=== PATIENT | male | born 1990 | race Two or more races ===

== ENCOUNTER → 2017-09-20 | Outpatient (CLI) | payer MEDICAID ==
[2017-09-20 20:01] LABS: BASO % 0.3 % (0.0-1.0); EOS # 0.2 10^3/uL (0.0-0.50); EOS % 2.5 % (0.0-3.0); IMMATURE GRANULOCYTE % 0.3 % (0-0); LYMPH # 2.2 10^3/uL (1.5-6.5); LYMPH % 35.2 % (24.0-44.0); MEAN CORPUSCULAR HEMOGLOBIN 28.6 pg (27.0-33.0); MEAN CORPUSCULAR VOLUME 86.5 fl (80.0-96.0); MONO # 0.6 10^3/uL (0.0-0.8); MONO % 9.3 % (0.0-5.0); NEUTROPHILS # 3.2 10^3/uL (1.8-7.7); NEUTROPHILS % 52.4 % (36.0-66.0); PLATELET COUNT, AUTOMATED 287 10^3/uL (150-450); RED CELL DISTRIBUTION WIDTH 12.6 % (11.5-14.5); WHITE BLOOD COUNT 6.1 10^3/uL (4.0-10.0)
[2017-09-20 20:18] LABS: ALBUMIN 4.4 GM/DL (3.2-5.2); ALBUMIN/GLOBULIN RATIO 1.47 (1.00-1.93); ALKALINE PHOSPHATASE 102 U/L (45-117); ALT/SGPT 28 U/L (12-78); ANION GAP 4 MEQ/L (8-16); AST/SGOT 17 U/L (7-37); BILIRUBIN,TOTAL 0.3 MG/DL (0.2-1.0); BLOOD UREA NITROGEN 14 MG/DL (7-18); CARBON DIOXIDE LEVEL 32 MEQ/L (21-32); CHLORIDE LEVEL 105 MEQ/L (98-107); CREATININE FOR GFR 0.93 MG/DL (0.70-1.30); GLOMERULAR FILTRATION RATE > 60.0 (>60); GLUCOSE, FASTING 82 MG/DL (70-105); POTASSIUM SERUM 4.4 MEQ/L (3.5-5.1); SODIUM LEVEL 141 MEQ/L (136-145); TOTAL PROTEIN 7.4 GM/DL (6.4-8.2)
--- NOTE | 2017-09-21 07:09 | REP ---
Clinical: Pain. Technique: Internal rotation, external rotation, and Y view of the right shoulder. Findings: Cortical irregularity, spurring and possible loose bodies involving the acromioclavicular joint cannot be excluded. The glenohumeral joint appears intact and normal. Subacromial space appears normal. 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 Signed by Eduardo Salazar MD 09/20/2017 05:35 P
== END ==
LOC: M LRY 16:59
PROVIDERS: ATTEND Family Medicine
DX: M19.011 Primary osteoarthritis, right shoulder (principal)

== ENCOUNTER → 2017-09-20 | Outpatient (REF) | payer MEDICAID | LOC: M SFHCLERA 16:37 | PROVIDERS: ATTEND Family Medicine | DX: F19.90 Other psychoactive substance use, unspecified, uncomplicated (principal); Z53.8 Procedure and treatment not carried out for other reasons ==

== ENCOUNTER → 2018-02-22 | Outpatient (REF) | payer MEDICAID | LOC: M LAB REF 02-23 11:47 | DX: F11.21 Opioid dependence, in remission (principal) ==

== ENCOUNTER → 2018-03-08 | Outpatient (REF) | payer MEDICAID | LOC: M LAB REF 17:44 | DX: F11.21 Opioid dependence, in remission (principal) ==

== ENCOUNTER → 2018-03-22 | Outpatient (REF) | payer OTHER, MEDICAID ==
[2018-03-28 14:11] LABS: AMPHETAMINE SCREEN, URINE Negative ng/mL (Cutoff=1000); BARBITURATES SCREEN, URINE Negative ng/mL (Cutoff=200); BENZODIAZEPINES, URINE SCREEN Negative ng/mL (Cutoff=200); CANNABINOID SCREEN, URINE Negative ng/mL (Cutoff=20); COCAINE SCREEN, URINE Negative ng/mL (Cutoff=300); CREATININE, URINE 32.4 mg/dL (20.0-300.0); FENTANYL URINE SCREEN Negative pg/mL (Cutoff=2000); METHADONE, URINE SCREEN Negative ng/mL (Cutoff=300); NALOXONE RESULT Positive (.); OPIATE SCREEN, URINE Negative ng/mL (Cutoff=300); OXYCODONE, SCREEN, URINE Negative ng/mL (Cutoff=100); PCP SCREEN, URINE Negative ng/mL (Cutoff=25); SPECIFIC GRAVITY, URINE 1.007 (.); URINE BUPRENORPHINE Positive (.); URINE BUPRENORPHINE Positive (Cutoff=10); URINE BUPRENORPHINE See Final Results ng/mL (Cutoff=10); URINE BUPRENORPHINE CONFIRM 380 ng/mL (Cutoff=10); URINE NORBUPRENORPHINE Positive (.); URINE NORBUPRENORPHINE CONFIRM 96 ng/mL (Cutoff=10); pH, URINE 5.8 (4.5-8.9)
== END ==
LOC: M LAB REF 17:04
DX: F11.21 Opioid dependence, in remission (principal)
CPT/HCPCS: 80362

== ENCOUNTER → 2018-03-29 | Outpatient (REF) | payer OTHER, MEDICAID ==
[2018-04-06 10:13] LABS: AMPHETAMINE SCREEN, URINE Negative ng/mL (Cutoff=1000); BARBITURATES SCREEN, URINE Negative ng/mL (Cutoff=200); BENZODIAZEPINES, URINE SCREEN Negative ng/mL (Cutoff=200); CANNABINOID SCREEN, URINE Negative ng/mL (Cutoff=20); COCAINE SCREEN, URINE Negative ng/mL (Cutoff=300); CREATININE, URINE 101.5 mg/dL (20.0-300.0); FENTANYL URINE SCREEN Negative pg/mL (Cutoff=2000); METHADONE, URINE SCREEN Negative ng/mL (Cutoff=300); NALOXONE RESULT Positive (.); OPIATE SCREEN, URINE Negative ng/mL (Cutoff=300); OXYCODONE, SCREEN, URINE Negative ng/mL (Cutoff=100); PCP SCREEN, URINE Negative ng/mL (Cutoff=25); SPECIFIC GRAVITY, URINE 1.006 (.); URINE BUPRENORPHINE Positive (.); URINE BUPRENORPHINE Positive (Cutoff=10); URINE BUPRENORPHINE See Final Results ng/mL (Cutoff=10); URINE BUPRENORPHINE CONFIRM 1074 ng/mL (Cutoff=10); URINE NORBUPRENORPHINE Positive (.); URINE NORBUPRENORPHINE CONFIRM 498 ng/mL (Cutoff=10); pH, URINE 6.3 (4.5-8.9)
== END ==
LOC: M LAB REF 09:10
DX: F11.21 Opioid dependence, in remission (principal)

== ENCOUNTER → 2018-04-05 | Outpatient (REF) | payer OTHER, MEDICAID ==
[2018-04-13 10:16] LABS: AMPHETAMINE SCREEN, URINE Negative ng/mL (Cutoff=1000); BARBITURATES SCREEN, URINE Negative ng/mL (Cutoff=200); BENZODIAZEPINES, URINE SCREEN Negative ng/mL (Cutoff=200); CANNABINOID SCREEN, URINE Negative ng/mL (Cutoff=20); COCAINE SCREEN, URINE Negative ng/mL (Cutoff=300); CREATININE, URINE 11.6 mg/dL (20.0-300.0); FENTANYL URINE SCREEN Negative pg/mL (Cutoff=2000); METHADONE, URINE SCREEN Negative ng/mL (Cutoff=300); NALOXONE RESULT Positive (.); OPIATE SCREEN, URINE Negative ng/mL (Cutoff=300); OXYCODONE, SCREEN, URINE Negative ng/mL (Cutoff=100); PCP SCREEN, URINE Negative ng/mL (Cutoff=25); URINE BUPRENORPHINE Positive (.); URINE BUPRENORPHINE Positive (Cutoff=10); URINE BUPRENORPHINE See Final Results ng/mL (Cutoff=10); URINE BUPRENORPHINE CONFIRM 112 ng/mL (Cutoff=10); URINE NORBUPRENORPHINE Positive (.); URINE NORBUPRENORPHINE CONFIRM 28 ng/mL (Cutoff=10); pH, URINE 6.4 (4.5-8.9)
== END ==
LOC: M LAB REF 08:06
DX: F11.21 Opioid dependence, in remission (principal)

== ENCOUNTER 2020-01-03 11:49 | Inpatient (IN) | payer BC, MEDICAID, OTHER ==
[~2020-01-03] VITALS: Ht 182.9 cm; Wt 86.4 kg
[2020-01-03 12:19] LABS: HEMATOCRIT 38.5 % (42.0-52.0); HEMOGLOBIN 12.8 g/dl (13.5-17.5); MEAN CORPUSCULAR HEMOGLOBIN 28.1 pg (27.0-33.0); MEAN CORPUSCULAR HGB CONC 33.2 g/dl (32.0-36.5); MEAN CORPUSCULAR VOLUME 84.6 fl (80.0-96.0); PLATELET COUNT, AUTOMATED 283 10^3/uL (150-450); RED BLOOD COUNT 4.55 10^6/uL (4.30-6.10); WHITE BLOOD COUNT 6.6 10^3/uL (4.0-10.0)
[2020-01-03 12:51] LABS: ACETAMINOPHEN LEVEL < 2.0 UG/ML (10.0-30.0); ALBUMIN 3.8 GM/DL (3.2-5.2); ALT/SGPT 238 U/L (12-78); BILIRUBIN,DIRECT 0.2 MG/DL (0.0-0.2); BILIRUBIN,TOTAL 0.6 MG/DL (0.2-1.0); BLOOD UREA NITROGEN 21 MG/DL (7-18); CALCIUM LEVEL 8.4 MG/DL (8.5-10.1); CARBON DIOXIDE LEVEL 28 MEQ/L (21-32); CHLORIDE LEVEL 106 MEQ/L (98-107); ETHYL ALCOHOL (ETHANOL) 0.003 % (0.000-0.010); GLOMERULAR FILTRATION RATE > 60.0 (>60); GLUCOSE, FASTING 160 MG/DL (70-100); POTASSIUM SERUM 4.1 MEQ/L (3.5-5.1); SALICYLATE LEVEL < 1.7 MG/DL (5.0-30.0); SODIUM LEVEL 139 MEQ/L (136-145); THYROID STIMULATING HORMONE 0.476 uIU/ML (0.358-3.740); TOTAL PROTEIN 7.3 GM/DL (6.4-8.2)
[2020-01-03 13:19] LABS: AMPHETAMINES LEVEL URINE NEGATIVE (NEGATIVE); BARBITURATES URINE NEGATIVE (NEGATIVE); BENZODIAZEPINES URINE NEGATIVE (NEGATIVE); CANNABINOIDS URINE NEGATIVE (NEGATIVE); COCAINE METABOLITE URINE NEGATIVE (NEGATIVE); METHADONE URINE NEGATIVE (NEGATIVE); OPIATES URINE POSITIVE (NEGATIVE); PHENCYCLIDINE URINE NEGATIVE (NEGATIVE)
[2020-01-03] MEDS ORDERED: OLANZapine ORAL DISINTEGRATING TAB 5MG PO ONE (17:45)
--- NOTE | 2020-01-03 23:20 | ECGEPIP ---
[facility] - ED Test Date: 2020-01-03 Pat Name: AMELIE DE ANDA Department: Room: - Gender: Male Customer Service Consultant: sameera : 1990 Requested By: KYLIE ESPARZA Order Number: [id number] Reading MD: Kylie Bradshaw Measurements Intervals [place] Rate: 52 P: 51 MS: 142 QRS: 49 QRSD: 101 T: 45 QT: 440 QTc: 411 Interpretive Statements SINUS BRADYCARDIA WITH sinus arrythmia Comparison tracing not on file Electronically Signed on 01-03-2020 23:20:32 EST by Kylie Bradshaw
[2020-01-04] MEDS ORDERED: MOM 30ML SUSPENSION UDC PO PRN (15:30)
[2020-01-04] MEDS ORDERED: MAALOX 30 ML SUSP *UDC PO PRN (15:30)
[2020-01-04] MEDS: ACETAMINOPHEN TAB 650MG DOSE (2X325MG) PO PRN (16:35)
[2020-01-04 17:22] VITALS: BP 126/80
[2020-01-05 06:45] VITALS: BP 118/72
[2020-01-05 16:19] VITALS: BP 129/84
[2020-01-05] MEDS: ACETAMINOPHEN TAB 650MG DOSE (2X325MG) PO PRN (19:41)
[2020-01-05] MEDS: traZODone 50 MG TAB PO PRN (20:18)
[2020-01-06 06:52] VITALS: BP 118/64
[2020-01-06] MEDS: OLANZapine ORAL DISINTEGRATING TAB 5MG PO PRN ×2 (09:59→22:46)
[2020-01-06] MEDS: GABAPENTIN 300 MG CAP PO SCH ×2 (11:46→20:09)
--- NOTE | 2020-01-06 12:30 | HPEPDOC ---
[facility] Medical History & Physical Date of Admission Jan 06, 2020 Date of Service: Jan 06, 2020 Attending Physician: JEWEL DANIELS MD History and Physical CHIEF COMPLAINT: Admitted to inpatient mental health unit for hallucinations HISTORY OF PRESENT ILLNESS: 29-year-old male with past medical history of extensive IV drug use is admitted to inpatient mental health unit for hallucinations. Patient reports multiple occurrences of insomnia for days after taking lots of uppers. During this event he took Raquel, reports being awake for days, started hallucinating about the hospital. He denies any thoughts of depression or suicide. He denies any previous history of infection including cellulitis, bacteremia or endocarditis. Patient denies any history of illness from sharing needles. He has no complaints at this time, denies any shortness of breath, chest pain, nausea, vomiting, abdominal pain, diarrhea or constipation. 10 point review of system is negative except for above PAST MEDICAL HISTORY: 1. Drug abuse. PAST SURGICAL HISTORY: 1. Left hand surgery due to injury. SOCIAL HISTORY: Current smoker, smokes half a pack per day. Denies alcohol use. Active drug user, currently using Raquel FAMILY HISTORY: Denies family history of malignancy or heart disease ALLERGIES: Please see below. HOME MEDICATIONS: Please see below. PHYSICAL EXAMINATION: VITAL SIGNS: Please see below. GENERAL: No distress HEENT: Normocephalic, atraumatic, moist mucous membranes NECK: Supple CARDIOVASCULAR EXAMINATION: S1, S2, no murmurs RESPIRATORY EXAMINATION: Clear to auscultation, no wheezing ABDOMINAL EXAMINATION: Soft, nontender, nondistended, positive bowel sounds EXTREMITIES: Range of motion intact SKIN: Multiple track bertrand noted on both arms NEUROLOGICAL EXAMINATION: Alert and oriented 3, no focal deficits PSYCHIATRIC EXAMINATION: Calm and cooperative LABORATORY DATA: See below. MICROBIOLOGY: Please see below. ASSESSMENT: 29-year-old male with history of drug abuse, admitted to inpatient mental health unit for hallucinations PLAN: 1. Hallucinations. Management as per primary team 2. Elevated LFTs. Possibly related to hepatitis given history of IV drug use, hepatitis panel ordered. Patient is symptomatic Vital Signs Vital Signs Date Time Temp Pulse Resp B/P (MAP) Pulse Ox O2 Delivery O2 Flow Rate FiO2 01/06/20 06:52 99.0 66 16 118/64 (82) 01/04/20 17:22 100 Room Air Home Medications No Active Prescriptions or Reported Meds Allergies Coded Allergies: No Known Allergies (Unverified , 01/03/20) A-FIB/CHADSVASC A-FIB History Current/History of A-Fib/PAF?: No JEWEL DANIELS MD Jan 06, 2020 12:30
[2020-01-06 16:14] VITALS: BP 115/66
[2020-01-06] MEDS: traZODone 50 MG TAB PO PRN (20:08)
--- NOTE | 2020-01-06 20:18 | MHHPE ---
DATE OF ADMISSION: 01/04/2020 VITAL SIGNS: Blood pressure 129/84, pulse 113, temperature 98.4. CHIEF COMPLAINT: "I was hallucinating." SUBJECTIVE: He is 29 years old. He is single. He stays with his mother and apparently moved back to this area, living with his mother recently, and prior to that was in [place], [place], where, according to the emergency room chart, he was with an ex girlfriend. He says that he has been hallucinating and that he has tended to do that whenever he has used drugs, says most recently was using heroin, was injecting it, as well as "Raquel" (MDMA) and says was up for several nights and then began hearing voices. He says that they belong to familiar people, friends of his as well, says they would address him, but would not talk among themselves. He denies that they were giving him any commands. He says that he feels that they are diminished now. He says that he has had similar experiences in the past when he has used drugs and has stayed up several nights in a row. He says that he realizes the hallucinations and that they are always associated with his drug use. He says that there are other times when he is not using drugs but that he still has periods when he is up, not sleeping, feels more irritable during that time, says feels somewhat tired, acknowledges is more impulsive during those periods, financially and socially but did not go into details, and that those periods last for a few days and then he tends to "crash." In the emergency room , he had suggested that he had microchips in his body, says did not recall saying that or feeling that, does say when he is using drugs that his thoughts become disorganized somewhat. Denies that he has had thoughts of harming himself. He also says that he has had periods when he does not sleep much, at least since his early 20s, possibly earlier. When in the emergency room, had suggested that he had microchips in his body, he thought that he was getting shocked in the right flank, but has reported no such thoughts now. He says that he does not remember that, and that he has had such thoughts when using drugs in the past. The record also suggests that he has used Narcan in the past. Other thoughts when seen in the emergency room included belief that people are touching his penis or putting objects into his anus and that he could feel it because it was in his stomach. PAST PSYCHIATRIC HISTORY: He was apparently hospitalized at [facility] in 2019 in the summer, had attempted killing himself by cutting his wrist. Unclear if he attends any outpatient care. Per history, he has a history of depression, anxiety, and posttraumatic stress disorder (PTSD), but I am not aware of details. SUBSTANCE ABUSE HISTORY: He has a history of substance abuse, opiates, Raquel. He says that he is due to go to an outpatient rehabilitation facility, he is unclear where it is, then says that he thinks that he may have needed to have started yesterday. SOCIAL HISTORY: Details are not known in any great amount, but he stays with his mother, he was in [place], [place] just prior to this. He suggests that his mother has difficulties with moods and that she is on medicine, but she has been doing well. He also suggests a sibling has similar difficulties. MENTAL STATUS EXAMINATION: He is fairly neat, seems to have had some scratches on his face. Cooperative though a bit guarded. There is no agitation. No psychomotor retardation. He is coherent. Affect is restricted but shows reactivity. Denies any suicidal thoughts or intents. No homicidal ideas or intents. Currently, he does not appear to be internally preoccupied. No fluctuation of consciousness. No overt delusions elicited at present either. Cognition is grossly intact. Intellect is average. He is able to maintain and shift attention adequately. Judgment and insight are questionable. ASSESSMENT: 1. Other specified psychotic disorder. 2. Rule out bipolar disorder. 3. Rule out psychotic disorder due to drug misuse. 4. Opiate use disorder. The patient describes periods of hallucinations, possibly paranoia though unable to describe that, but only when using drugs. He says that he tends to stay up for several nights and the drugs may be inducing possible manic episodes with psychosis. He suggests that he has had mood fluctuations independent of drug use and this brings into question the possibility of bipolar disorder in addition to secondary joceline. He may well not be a reliable historian either. PLAN: He is admitted to the inpatient psychiatry unit and placed on relevant precautions. I would suggest obtaining collateral information for a raymundo picture. Would also treat symptomatically but would hold off on using a psychotropic on a scheduled basis, may not need one. The possibility; however, of using a mood stabilizer, depending on further information obtained, needs to be considered. He will be involved in individual, group and milieu therapy. He will receive a consultation from medicine if indicated. He will be discharged with followup once he is stable. I would anticipate a 5 to 7 day stay. The assessment took 45 minutes.
[2020-01-07 06:30] VITALS: BP 126/81
[2020-01-07] MEDS: GABAPENTIN 300 MG CAP PO SCH ×2 (09:13→20:12)
--- NOTE | 2020-01-07 10:29 | MHIPNPDOC ---
[facility] Progress Note Progress Note Inpatient Progress Note Joni Christy MRN: N/A Date of : N/A Date of Service: 01/07/2020 History of Present Illness The patient, a 29-year-old man with a history of significant substance use, presents intoxicated with delusions and paranoia. Interval History Narrative: The patient reports feeling much improved, does feel some withdrawal from his heroin use prior to admission. Affective: Denies any symptoms. Psychotic: Denies any symptoms. Anxiety: Worries about being discharged. Eating and sleeping behaviors: Within normal limits. Group Attendance: Infrequent. Medication Side effects: See ROS below Behavioral problems/significant events overnight: None reported. Staff Report: Patient generally amenable, although minimally involved. Review Of Systems General: Denies fever or appetite changes Cardiovascular: Denies Chest pain or palpations GI: Denies Nausea, vomiting, or bowel changes Respiratory: Denies shortness of breath or cough Neuro: Denies dizziness, tremors Derm: Denies any rashes or pruritus : Denies any dysuria or urinary problems MSK: Reports significant back pain HEENT: Denies any vision changes or headaches Psychotherapy None on this visit. Vital Signs Reviewed. Mental Status Examination General: Well dressed with good hygiene Speech: Spontaneous and fluid Thought processes: Linear and logical MSK: Smooth and coordinated gait, no signs of tremors or involuntary orofacial movements Thought content: Future orientated Abstract reasoning, and computation: Intact Description of associations: Intact Description of abnormal or psychotic thoughts: Denies any suicidal or homicidal ideation. Denies any auditory or visual hallucinations. Does not appear to be responding to internal stimuli. Does not appear to be endorsing any bizarre or paranoid ideation. Judgment: fair Insight: fair Orientation: Alert and orientated 3 Cognition: Grossly normal Recent and remote memory: Intact Attention span and concentration: Intact Fund of knowledge: Adequate Mood: "okay" Affect: Euthymic with a full range Diagnoses Unspecified psychotic disorder. Highly likely substance induced. Opioid use disorder, severe. Hallucinogen use disorder, severe. Assessment and Plan Unspecified psychotic disorder: Resolved, likely substance induced. Opioid use disorder: One dose of buprenorphine to detox patient. Discussed with patient about outpatient addiction resources Hallucinogen use disorder: Recommend outpatient treatment versus rehab. Disposition Discharge tomorrow if patient continues to have a normal mental status exam and is in behavioral control. Time Spent 15 minutes Tuesday Vital Signs Vital Signs Date Time Temp Pulse Resp B/P (MAP) Pulse Ox O2 Delivery O2 Flow Rate FiO2 01/07/20 06:30 97.6 104 14 126/81 (96) 01/04/20 17:22 100 Room Air Laboratory Data 24H Labs Laboratory Tests 2 01/07/20 06:18: Current Medications Current Medications Medications (Trade) Dose Ordered Sig/Ivana Route PRN Reason Start Time Stop Time Status Last Admin Dose Admin Acetaminophen (Tylenol Tab) 650 mg Q6HP PRN PO HEADACHE or DISCOMFORT 01/04/20 15:30 01/05/20 19:41 Al Hydrox/Mg Hydrox/Simethicone (Mylanta) 30 ml Q4HP PRN PO HEARTBURN/INDIGESTION 01/04/20 15:30 Gabapentin (Neurontin) 300 mg BID PO 01/06/20 09:00 01/07/20 09:13 Home Med (Med Rec Complete!) ASDIRECTED XX 01/04/20 14:00 01/04/20 13:50 DC Magnesium Hydroxide (Milk Of Magnesia) 30 ml DAILYPRN PRN PO CONSTIPATION 01/04/20 15:30 Olanzapine (ZyPREXA ZYDIS) 5 mg Q6HP PRN PO ANXIETY/AGITATION 01/05/20 19:00 01/06/20 22:46 Trazodone HCl (Desyrel) 50 mg QHSP PRN PO INSOMNIA 01/04/20 15:30 01/06/20 20:08 Allergies Coded Allergies: No Known Allergies (Unverified , 01/03/20) PORTILLO [place] DO Jan 07, 2020 10:29
--- NOTE | 2020-01-07 13:06 | MHIPN ---
DATE: 01/06/2020 VITAL SIGNS: Blood pressure 118/64, pulse 66, temperature 99. CHIEF COMPLAINT: Says feels okay. SUBJECTIVE: He is seen for followup in the presence of staff. Says feels okay but bored. He says that he slept well, took the trazodone, which he says helped. He denies any auditory hallucinations. He says that he was visited by his mother and that went well. Says has been on gabapentin at 600 mg three times a day for a few years. He says that it is used in his case for mood stability, as well as "nerve pain." He suggests that it helps with his mood stability, though I am not sure that is accurate. MENTAL STATUS EXAMINATION He is lying in bed. He is cooperative, though possibly a bit superficially so. No agitation. No psychomotor retardation. He is coherent. Affect is restricted but reactive. Denies any thoughts of harming himself or anyone else. Denies any auditory or visual hallucinations. Does not appear to be internally preoccupied. No delusions elicited. Cognition is grossly intact. Judgment and insight fair, possibly improved. ASSESSMENT: 1. Other specified psychotic disorder. 2. Possibility of drug induced hallucinations ought to be considered. There is also the possibility of bipolar disorder concomitant with the substance misuse. PLAN: Continue current care. Obtain collateral information. We will look at resuming the gabapentin at 600 mg and titrate it upwards, start off with it being taken once a day. Collateral information would help clarify the diagnosis further. He is to be encouraged to participate in activities in the unit. He will be seeing the treatment team, as well as the assigned psychiatrist tomorrow.
[2020-01-07] MEDS ORDERED: BUPRENORPHINE/NALOXONE 8-2MG SUBLINGUAL TABLET(SUBOXONE) SL ONE (14:00)
[2020-01-07 16:24] VITALS: BP 134/79
[2020-01-07] MEDS: traZODone 50 MG TAB PO PRN (20:12)
[2020-01-07] MEDS: OLANZapine ORAL DISINTEGRATING TAB 5MG PO PRN (20:12)
[2020-01-07] MEDS ORDERED: zolPIDEM TARTRATE 5 MG TAB PO ONE (22:30)
[2020-01-08 06:40] VITALS: BP 121/73
[2020-01-08] MEDS: OLANZapine ORAL DISINTEGRATING TAB 5MG PO PRN (10:05)
[2020-01-08] MEDS: ACETAMINOPHEN TAB 650MG DOSE (2X325MG) PO PRN (10:05)
[2020-01-08] MEDS: GABAPENTIN 300 MG CAP PO SCH (10:05)
--- NOTE | 2020-01-08 10:54 | MHDSPDOC ---
[facility] Discharge Summary Discharge Summary DATE OF ADMISSION: Jan 04, 2020 at 15:27 DATE OF DISCHARGE: 01/08/20 Joni Christy Discharge Joni Christy Select Gender MRN: N/A Date of : MM/DD/YYYY Date of Service: 01/08/2020 Diagnoses Unspecified psychotic disorder. Highly likely substance induced. Opioid use disorder, severe. Hallucinogen use disorder, severe. History of Present Illness The patient, a 29-year-old man with a history of significant substance use, p resents intoxicated with delusions and paranoia. Consultants Involved Hospitalist/PCP screening Treatment and Progress On The Unit The patient was admitted to the inpatient mental health unit. It appeared quite obvious that initially he had been psychotic from intoxication on a number of hallucinogens. He did well on just supportive treatment and returned to a normal mental status. He had no major behavioral problems and attended groups at times. He was met with several times where it appeared quite clear that he had returned to his baseline level of understanding of the situation. His mother had reported concerns as his behavior had been quite dysregulated when he was intoxicated and that he has significantly relapsed on a number of different substances over the last year. She relates some concerns the day prior to discharge, when I had spoken to her no new information was gleaned other than his relapse had caused him to become very dysregulated, but she did admit when he was sober he had no symptoms. I discussed with the patient the options of an antipsychotic and the risks and benefits, especially with the concern that they would be generally contraindicated for long-term use given that he primarily has likely substance- induced psychosis from his methamphetamine and miguel. I gave suggestions to the mother about assisted outpatient treatment and rehab referrals to the patient, he was precontemplative but was open to the idea of coming to our addiction clinic to see about further treatment. He was given 1 dose of buprenorphine to soothe his heroin withdrawals with positive effects. Discharge Assessment The patient, a 29-year-old man, with a history of significant substance use over the past year, who's recently relapsed on heroin and multiple hallucinogens pres ents intoxicated with psychotic symptoms that resolved without any significant interventions, leading this provider to believe they are primarily substance induced. Information from his mother doesn't contribute to the diagnostic or prognostic picture significantly, as her concerns are validated when spoken to, she was explained the limits of involuntary commitment as the patient was not demonstrating any further symptoms since his intoxication had resolved. The patient at the time of discharge did not meet criteria for involuntary admission/extension due to having a normal mental status exam, fair insight into the situation, They are engaged in the discharge process, as well as being friendly and amenable in behavioral control and havent been engaging in any observed concerning behavior or ideation recently. They decline voluntary extension/admission at this time and must be discharged in good rochelle, as Im unable to make a case for holding the patient against their will. They may have historical risk factors of admissions and other interactions with psychiatry however, those are not modifiable from a clinical perspective. The patient will need to be discharged in good rochelle. Mental Status Examination General: Well dressed with good hygiene Speech: Spontaneous and fluid Thought processes: Linear and logical MSK: Smooth and coordinated gait, no signs of tremors or involuntary orofacial movements Thought content: Future orientated Abstract reasoning, and computation: Intact Description of associations: Intact Description of abnormal or psychotic thoughts: Denies any suicidal or homicidal ideation. Denies any auditory or visual hallucinations. Does not appear to be responding to internal stimuli. Does not appear to be endorsing any bizarre or paranoid ideation. Judgment: fair Insight: fair Orientation: Alert and orientated 3 Cognition: Grossly normal Recent and remote memory: Intact Attention span and concentration: Intact Fund of knowledge: Adequate Mood: "okay" Affect: Euthymic with a full range Follow Up The social work team worked during the predischarge meeting in order to evaluate for further issues of lethality address them fully before discharge. They worked on safety planning with the patient's family members in order to ensure that the patient will have a safe and effective discharge. Time Spent The amount of time spent in the coordination of care for this patient was approx imately 50 minutes. Vital Signs/I&Os Vital Signs Date Time Temp Pulse Resp B/P (MAP) Pulse Ox O2 Delivery O2 Flow Rate FiO2 01/08/20 06:40 97.5 83 12 121/73 (89) Room Air 01/04/20 17:22 100 Medications No Active Prescriptions or Reported Meds Allergies Coded Allergies: No Known Allergies (Unverified , 01/03/20) PORTILLO [place] DO Jan 08, 2020 10:54
[2020-01-11 00:07] LABS: HBV HBV DNA not detected IU/mL (.); HBVCOREDIFF1 Negative (Negative); HBVCOREDIFF2 Negative (Negative); HCV RNA (INTERNATIONAL UNITS) 10873000 IU/mL (.); HEPATITIS BE ANTIBODY Negative (Negative); HEPATITIS BE ANTIGEN Negative (Negative); HEPATITIS C QUANTITATION See Final Results IU/mL (.)
== END 2020-01-08 11:50 | disposition home or self-care (01) | DRG 751 ==
LOC: M ED 11:49 → M ED INP 01-04 15:27 → M PSY 01-04 16:07
PROVIDERS: ADMIT Psychiatry & Neurology Addiction Medicine; ATTEND Psychiatry & Neurology Addiction Medicine
DX: F29 Unspecified psychosis not due to a substance or known physiological condition (principal); F11.251 Opioid dependence with opioid-induced psychotic disorder with hallucinations; F16 Hallucinogen related disorders; G47.00 Insomnia, unspecified; F17.210 Nicotine dependence, cigarettes, uncomplicated; R94.5 Abnormal results of liver function studies

== ENCOUNTER 2022-11-30 10:55 | Inpatient (IN) | payer BC, OTHER ==
[~2022-11-30] VITALS: Ht 182.9 cm; Wt 86.3 kg
[2022-11-30 12:27] LABS: HEMATOCRIT 40.2 % (42.0-52.0); HEMOGLOBIN 13.1 g/dl (13.5-17.5); MEAN CORPUSCULAR HEMOGLOBIN 28.1 pg (27.0-33.0); MEAN CORPUSCULAR HGB CONC 32.6 g/dl (32.0-36.5); MEAN CORPUSCULAR VOLUME 86.1 fl (80.0-96.0); PLATELET COUNT, AUTOMATED 341 10^3/uL (150-450); RED BLOOD COUNT 4.67 10^6/uL (4.30-6.10); WHITE BLOOD COUNT 11.7 10^3/uL (4.0-10.0)
[2022-11-30 12:51] LABS: ETHYL ALCOHOL (ETHANOL) 0.003 % (0.000-0.010)
[2022-11-30 12:53] LABS: ACETAMINOPHEN LEVEL < 2.0 UG/ML (10.0-20.0); ALBUMIN 4.7 G/DL (3.2-5.2); ALKALINE PHOSPHATASE 75 U/L (46-116); ALT/SGPT 52 U/L (7.0-40); AST/SGOT 92 U/L (<34); BILIRUBIN,DIRECT 0.4 MG/DL (<0.4); BILIRUBIN,TOTAL 0.9 MG/DL (0.3-1.2); BLOOD UREA NITROGEN 24 MG/DL (9-23); CALCIUM LEVEL 9.2 MG/DL (8.5-10.1); CARBON DIOXIDE LEVEL 24 MMOL/L (20-31); CHLORIDE LEVEL 99 MMOL/L (98-107); CREATININE FOR GFR 0.77 MG/DL (0.70-1.30); GLOMERULAR FILTRATION RATE > 60.0 (>60); GLUCOSE, FASTING 84 MG/DL (60-100); POTASSIUM SERUM 3.9 MMOL/L (3.5-5.1); SALICYLATE LEVEL < 3.0 MG/DL (<30); SODIUM LEVEL 137 MMOL/L (136-145); TOTAL PROTEIN 7.8 G/DL (5.7-8.2)
[2022-11-30 16:26] LABS: METHADONE URINE NEGATIVE (NEGATIVE); OPIATES URINE NEGATIVE (NEGATIVE); PHENCYCLIDINE URINE NEGATIVE (NEGATIVE)
[2022-11-30 16:27] LABS: AMPHETAMINES LEVEL URINE NEGATIVE (NEGATIVE); BARBITURATES URINE NEGATIVE (NEGATIVE); BENZODIAZEPINES URINE NEGATIVE (NEGATIVE); CANNABINOIDS URINE NEGATIVE (NEGATIVE); COCAINE METABOLITE URINE NEGATIVE (NEGATIVE)
[2022-11-30 16:35] LABS: THYROID STIMULATING HORMONE 0.412 uIU/ML (0.55-4.78)
[2022-11-30] MEDS: BUPRENORPHINE/NALOXONE 8-2MG SUBLINGUAL TABLET(SUBOXONE) SL SCH (19:54)
[2022-11-30] MEDS: GABAPENTIN 300 MG CAP PO SCH (19:54)
[2022-11-30] MEDS ORDERED: OLANZapine 10 MG TAB PO SCH (19:55)
[2022-11-30] MEDS ORDERED: cloNIDine 0.1MG TABLET PO SCH (19:55)
[2022-11-30] MEDS ORDERED: QUEtiapine FUMARATE 200 MG TAB PO SCH (19:55)
[2022-12-01] MEDS: NICOTINE 21MG/24HR 1 EA TRANSDERMAL TD SCH (09:00)
[2022-12-01] MEDS ORDERED: cloNIDine 0.1MG TABLET PO SCH ×2 (09:00→21:00)
[2022-12-01] MEDS ORDERED: QUEtiapine FUMARATE 200 MG TAB PO SCH ×2 (09:00→21:00)
[2022-12-01] MEDS ORDERED: OLANZapine 10 MG TAB PO SCH ×2 (09:00→21:00)
[2022-12-01] MEDS: BUPRENORPHINE/NALOXONE 8-2MG SUBLINGUAL TABLET(SUBOXONE) SL SCH (10:12)
[2022-12-01] MEDS: GABAPENTIN 300 MG CAP PO SCH ×3 (10:12→20:42)
[2022-12-01] MEDS ORDERED: OLAN1TAB20 PO (11:53)
[2022-12-01] MEDS ORDERED: GABA600T4 PO (11:53)
[2022-12-01] MEDS ORDERED: QUET200T2 PO (11:53)
[2022-12-01] MEDS ORDERED: BUPR1SUB5 PO (11:53)
[2022-12-01] MEDS ORDERED: CLON-412 PO (11:53)
[2022-12-01] MEDS ORDERED: HOME MED LIST COMPLETE! XX SCH (11:55)
[2022-12-01] MEDS ORDERED: ACETAMINOPHEN TAB 650MG DOSE (2X325MG) PO PRN (14:15)
[2022-12-01] MEDS ORDERED: traZODone 50 MG TAB PO PRN (14:15)
[2022-12-01] MEDS ORDERED: MOM 30ML SUSPENSION UDC PO PRN (14:15)
[2022-12-01] MEDS ORDERED: MAALOX 30 ML SUSP *UDC PO PRN (14:15)
[2022-12-01 16:50] VITALS: BP 137/79
[2022-12-01] MEDS: OLANZapine 10 MG TAB PO SCH (20:42)
[2022-12-01] MEDS: QUEtiapine FUMARATE 200 MG TAB PO SCH (20:42)
[2022-12-01] MEDS: cloNIDine 0.1MG TABLET PO SCH (20:42)
[2022-12-01] MEDS ORDERED: BUPRENORPHINE/NALOXONE 8-2MG SUBLINGUAL TABLET(SUBOXONE) PO SCH (21:00)
[2022-12-02 06:39] VITALS: BP 109/57
[2022-12-02] MEDS: NICOTINE 21MG/24HR 1 EA TRANSDERMAL TD SCH (09:00)
[2022-12-02] MEDS: BUPRENORPHINE/NALOXONE 8-2MG SUBLINGUAL TABLET(SUBOXONE) PO SCH ×2 (10:50→14:00)
[2022-12-02] MEDS: GABAPENTIN 300 MG CAP PO SCH ×3 (10:50→20:35)
[2022-12-02 19:14] VITALS: BP 150/80
[2022-12-02 20:35] VITALS: BP 150/80
[2022-12-02] MEDS: OLANZapine 10 MG TAB PO SCH (20:35)
[2022-12-02] MEDS: cloNIDine 0.1MG TABLET PO SCH (20:35)
[2022-12-02] MEDS: QUEtiapine FUMARATE 200 MG TAB PO SCH (20:35)
[2022-12-03 07:02] VITALS: BP 124/58
[2022-12-03] MEDS: NICOTINE 21MG/24HR 1 EA TRANSDERMAL TD SCH (09:00)
[2022-12-03] MEDS: GABAPENTIN 300 MG CAP PO SCH (09:07)
[2022-12-03] MEDS: BUPRENORPHINE/NALOXONE 8-2MG SUBLINGUAL TABLET(SUBOXONE) PO SCH (09:07)
== END 2022-12-03 13:20 | disposition home or self-care (01) | DRG 750 ==
LOC: M ED 10:55 → M ED INP 12-01 14:13 → M PSY 12-01 16:44
PROVIDERS: ADMIT Psychiatry & Neurology Psychiatry; ATTEND Psychiatry & Neurology Psychiatry
DX: F25.9 Schizoaffective disorder, unspecified (principal); Z91.14 Patient's other noncompliance with medication regimen; F13.10 Sedative, hypnotic or anxiolytic abuse, uncomplicated; Z56.0 Unemployment, unspecified; F17.200 Nicotine dependence, unspecified, uncomplicated; Z79.899 Other long term (current) drug therapy